=== PATIENT | male | born 1985 | race Caucasian/White ===

== ENCOUNTER 2017-08-29 22:01 | Emergency (ER) | payer BC, OTHER ==
[2017-08-29] MEDS ORDERED: Sodium Chloride 0.9% 1,000 ML IV SCH (22:15)
[2017-08-29] MEDS ORDERED: HYDROmorphone 1 MG/ML Syringe IVPUSH PRN (22:38)
--- NOTE | 2017-08-29 22:45 | EDM.PDOC ---
ED HPI GENERAL MEDICAL PROBLEM - General Chief Complaint: Abdominal Pain Stated Complaint: abdominal pain Time Seen by Provider: 08/29/17 22:30 Source of Information: Reports: Patient History Limitations: Reports: No Limitations - History of Present Illness INITIAL COMMENTS - FREE TEXT/NARRATIVE: Patient is a 31-year-old who was seen with chief complaint of severe right lower and right flank pain states that the pain started at around 3:30 PM today and progressively has gotten worse. Patient also states that he has had liquidy stools started form ended up liquidy denies vomiting but admits to some nausea. Pain is about an 8 out of 10 Onset: Today Duration: Hour(s):, Getting Worse Location: Reports: Abdomen Quality: Reports: Stabbing Severity: Severe Improves with: Reports: Rest Worsens with: Reports: Other (Standing straight or laying flat) Context: Reports: Sick Contact Associated Symptoms: Reports: Nausea/Vomiting right lower quadrant Pain Score (Numeric/FACES): 8 - Related Data Allergies Allergy/AdvReac Type Severity Reaction Status Date / Time celecoxib [From Celebrex] Allergy Airway Verified 08/29/17 22:03 Tightness Home Meds: Home Meds Multivitamin [Daily Multiple Vitamin] 1 tab PO DAILY 08/29/17 [History] ED ROS GENERAL - Review of Systems Review Of Systems: See Below Constitutional: Reports: Decreased Appetite HEENT: Reports: No Symptoms Respiratory: Reports: No Symptoms Cardiovascular: Reports: No Symptoms Endocrine: Reports: No Symptoms GI/Abdominal: Reports: Abdominal Pain (Right flank and right lower quadrant) : Reports: No Symptoms Musculoskeletal: Reports: No Symptoms Skin: Reports: No Symptoms Neurological: Reports: No Symptoms Psychiatric: Reports: No Symptoms Hematologic/Lymphatic: Reports: No Symptoms Immunologic: Reports: No Symptoms ED EXAM, GI/ABD - Physical Exam Exam: See Below Exam Limited By: No Limitations General Appearance: Alert, WD/WN, Moderate Distress Eyes: Bilateral: Normal Appearance, EOMI Ears: Normal External Exam, Normal Canal, Hearing Grossly Normal, Normal TMs Nose: Normal Inspection, Normal Mucosa, No Blood Throat/Mouth: Normal Inspection, Normal Lips, Normal Teeth, Normal Gums, Normal Oropharynx, Normal Voice, No Airway Compromise Head: Atraumatic, Normocephalic Neck: Normal Inspection, Supple, Non-Tender, Full Range of Motion Respiratory/Chest: No Respiratory Distress, Lungs Clear, Normal Breath Sounds, No Accessory Muscle Use, Chest Non-Tender Cardiovascular: Normal Peripheral Pulses, Regular Rate, Rhythm, No Edema, No Gallop, No JVD, No Murmur, No Rub GI/Abdominal Exam: Soft, Rebound, Tender, Hernia (Umbilical) (Male) Exam: Deferred Rectal (Males) Exam: Deferred Back Exam: Normal Inspection, Full Range of Motion, NT Extremities: Normal Inspection, Normal Range of Motion, Non-Tender, Normal Capillary Refill, No Pedal Edema Neurological: Alert, Oriented, CN II-XII Intact, Normal Cognition, Normal Gait, Normal Reflexes, No Motor/Sensory Deficits Psychiatric: Normal Affect, Normal Mood Course - Vital Signs Last Recorded V/S: Last Vital Signs Temp 97.6 F 08/29/17 22:01 Pulse 71 08/29/17 23:13 Resp 18 08/29/17 23:13 BP 133/86 08/29/17 23:13 Pulse Ox 100 08/29/17 23:13 - Orders/Labs/Meds Orders: Active Orders 24 hr Category Date Time Status Peripheral IV Care [RC] . DIRECTED Care 08/29/17 22:11 Active Abdomen Pelvis w Cont [CT] Stat Exams 08/29/17 22:46 Taken UA W/MICROSCOPIC [URIN] Stat Lab 08/29/17 22:45 Ordered HYDROmorphone [Dilaudid] Med 08/29/17 22:38 Active 1 mg IVPUSH Q2H PRN Ondansetron [Zofran] Med 08/29/17 22:54 Active 4 mg IVPUSH Q6H PRN Sodium Chloride 0.9% [Normal Saline] 1,000 ml Med 08/29/17 22:15 Active IV ASDIRECTED Sodium Chloride 0.9% [Saline Flush] Med 08/29/17 22:11 Active 10 ml FLUSH ASDIRECTED PRN Peripheral IV Insertion Adult [OM.PC] Routine Oth 08/29/17 22:11 Ordered Medication Orders Hydromorphone HCl (Dilaudid) 1 mg IVPUSH Q2H PRN PRN Reason: Pain Last Admin: 08/29/17 22:43 Dose: 1 mg Sodium Chloride (Normal Saline) 1,000 mls @ 125 mls/hr IV ASDIRECTED CHRISTOPHER Last Admin: 08/29/17 22:41 Dose: 125 mls/hr Ondansetron HCl (Zofran) 4 mg IVPUSH Q6H PRN PRN Reason: Nausea/Vomiting Last Admin: 08/29/17 22:59 Dose: 4 mg Sodium Chloride (Saline Flush) 10 ml FLUSH ASDIRECTED PRN PRN Reason: Keep Vein Open Last Admin: 08/29/17 23:04 Dose: 10 ml Admin: 08/29/17 22:51 Dose: 10 ml Labs: Laboratory Tests 08/29/17 08/29/17 Range/Units 22:20 22:20 WBC 15.7 H (4.0-10.2) K/uL RBC 4.76 (4.33-5.41) M/uL Hgb 14.6 (13.1-16.8) g/dL Hct 42.5 (39.0-49.0) % MCV 89.3 (84.0-98.0) fL MCH 30.7 (28.2-33.3) pg MCHC 34.4 (31.7-36.0) g/dL RDW 12.6 (11.2-14.1) % Plt Count 335 (150-350) K/uL Neut % (Auto) 75.6 (45.0-80.0) % Lymph % (Auto) 16.4 (10.0-50.0) % [place] % (Auto) 6.9 (2.0-14.0) % Eos % (Auto) 0.8 (0.0-5.0) % Baso % (Auto) 0.3 (0.0-2.0) % Neut # (Auto) 11.86 H (1.40-7.00) K/uL Lymph # (Auto) 2.58 (0.50-3.50) K/uL [place] # (Auto) 1.08 H (0.00-1.00) K/uL Eos # (Auto) 0.13 (0.00-0.50) K/uL Baso # (Auto) 0.04 (0.00-0.20) K/uL Sodium 141 (136-145) mmol/L Potassium 3.7 (3.5-5.1) mmol/L Chloride 105 (98-107) mmol/L Carbon Dioxide 25.9 (21.0-32.0) mmol/L BUN 18 (7-18) mg/dL Creatinine 1.09 (0.51-1.17) mg/dL Est Cr Clr Drug Dosing 118.34 mL/min Estimated GFR (MDRD) > 60 mL/min Glucose 107 H (74-106) mg/dL Calcium 9.1 (8.5-10.1) mg/dL Meds: Medications Generic Name Dose Route Start Last Admin Trade Name Freq PRN Reason Stop Dose Admin Hydromorphone HCl 1 mg 08/29/17 22:38 08/29/17 22:43 Dilaudid IVPUSH 1 mg Q2H PRN Administration Pain Sodium Chloride 1,000 mls @ 125 mls/hr 08/29/17 22:15 08/29/17 22:41 Normal Saline IV 125 mls/hr ASDIRECTED CHRISTOPHER Administration Ondansetron HCl 4 mg 08/29/17 22:54 08/29/17 22:59 Zofran IVPUSH 4 mg Q6H PRN Administration Nausea/Vomiting Sodium Chloride 10 ml 08/29/17 22:11 08/29/17 23:04 Saline Flush FLUSH 10 ml ASDIRECTED PRN Administration Keep Vein Open Discontinued Medications Generic Name Dose Route Start Last Admin Trade Name Freq PRN Reason Stop Dose Admin Iopamidol 100 ml 08/29/17 22:57 08/29/17 23:59 Isovue-300 (61%) IVPUSH 08/29/17 22:58 100 ml ONETIME ONE Administration Departure - Departure Time of Disposition: 00:58 Disposition: DC/Tfer to Acute Hospital 02 Condition: Fair Clinical Impression: Appendicitis Qualifiers: Appendicitis type: acute appendicitis Acute appendicitis type: unspecified acute appendicitis type Qualified Code(s): K35.80 - Unspecified acute appendicitis - Discharge Information Forms: ED Department Discharge Care Plan Goals: Spoke with surgeon Dr. Garzon at [facility] will give zosyn 3.375 milligrams IV prior to transfer patient may go by private vehicle I will leave the Hep-Lock in place - My Orders Last 24 Hours: My Active Orders 08/29/17 22:11 Peripheral IV Care [RC] . DIRECTED Sodium Chloride 0.9% [Saline Flush] 10 ml FLUSH ASDIRECTED PRN Peripheral IV Insertion Adult [OM.PC] Routine 08/29/17 22:15 Sodium Chloride 0.9% [Normal Saline] 1,000 ml IV ASDIRECTED 08/29/17 22:38 HYDROmorphone [Dilaudid] 1 mg IVPUSH Q2H PRN 08/29/17 22:45 UA W/MICROSCOPIC [URIN] Stat 08/29/17 22:46 Abdomen Pelvis w Cont [CT] Stat 08/29/17 22:54 Ondansetron [Zofran] 4 mg IVPUSH Q6H PRN - Assessment/Plan Last 24 Hours: My Active Orders 08/29/17 22:11 Peripheral IV Care [RC] . DIRECTED Sodium Chloride 0.9% [Saline Flush] 10 ml FLUSH ASDIRECTED PRN Peripheral IV Insertion Adult [OM.PC] Routine 08/29/17 22:15 Sodium Chloride 0.9% [Normal Saline] 1,000 ml IV ASDIRECTED 08/29/17 22:38 HYDROmorphone [Dilaudid] 1 mg IVPUSH Q2H PRN 08/29/17 22:45 UA W/MICROSCOPIC [URIN] Stat 08/29/17 22:46 Abdomen Pelvis w Cont [CT] Stat 08/29/17 22:54 Ondansetron [Zofran] 4 mg IVPUSH Q6H PRN
[2017-08-29] MEDS: Sodium Chloride 0.9% 10 ML Syringe FLUSH PRN ×2 (22:51→23:04)
[2017-08-29 22:53] LABS: CHLORIDE,CL 105 mmol/L (98-107); SODIUM,NA 141 mmol/L (136-145)
[2017-08-29] MEDS ORDERED: Ondansetron 4 MG/2 ML SDV IVPUSH PRN (22:54)
[2017-08-29] MEDS ORDERED: Iopamidol 612 MG/ML 100 ML Bottle IVPUSH ONE (22:57)
[2017-08-30] MEDS ORDERED: Piperacillin/Tazobactam 3.375 GM in Sodium Chloride 0.9% 100 ML IV SCH (01:00)
== END 2017-08-30 01:40 ==
LOC: LL.ED 22:01
DX: K35.80 Unspecified acute appendicitis (principal); Z88.8 Allergy status to other drugs, medicaments and biological substances
CPT/HCPCS: 36415; 74177; 80048; 81001; 85025; 96361; 96365; 96375; 99285; J1170; J2405; J2543; J7030; J7050; Q9967